=== PATIENT | female | born 1945 | race Caucasian/White ===

== ENCOUNTER 2022-10-24 08:22 | Outpatient (REF) | payer MEDICARE, MEDICAID, SELFPAY | END 2022-10-24 08:23 | disposition home or self-care (01) | LOC: HO.SH 08:22 | PROVIDERS: Visit Provider Family Medicine | DX: Z01.118 Encounter for examination of ears and hearing with other abnormal findings (principal); H90.3 Sensorineural hearing loss, bilateral | CPT/HCPCS: 92557; 92567 ==

== ENCOUNTER 2024-05-20 08:35 | Outpatient (REF) | payer OTHER, SELFPAY ==
[2024-05-20 14:37] LABS: MANUAL DIFF FLAG NO
[2024-05-20 14:44] LABS: Basophils Absolute Auto 0.1 X10*3/uL (0.0-0.2); Basophils Percent Auto 1.4 % (0-2); Eosinophils Absolute Auto 0.2 X10*3/uL (0.0-0.4); Hematocrit 42.8 % (37.0-47.0); Hemoglobin 13.9 g/dl (12.0-16.0); Imm Gran Abs Auto 0.01 X10*3/uL (0.00-0.03); Imm Gran Pct Auto 0.2 % (0.0-0.4); Lymphocytes Absolute Auto 2.7 X10*3/uL (1.2-4.9); Lymphocytes Percent Auto 45.4 % (20-40); Mean Corpuscular HGB Conc 32.5 g/dl (31.0-35.0); Mean Corpuscular Hemoglobin 32.1 pg (27.0-33.0); Mean Corpuscular Volume 98.8 fL (80.0-98.0); Mean Platelet Volume 10.1 fL (9.4-12.3); Monocytes Absolute Auto 0.7 X10*3/uL (0.1-1.2); Monocytes Percent Auto 11.3 % (2-11); Neutrophils Absolute Auto 2.3 x10*3/uL (2.0-8.3); Neutrophils Percent Auto 38.7 % (45-73); Platelet Count 271 X10*3/uL (160-400); Red Blood Count 4.33 X10*6/uL (4.20-5.50); Red Cell Distribution Width 13.1 % (11.0-16.0); White Blood Count 5.9 X10*3/uL (4.8-10.8)
[2024-05-20 15:04] LABS: Alanine Aminotransferase 17 U/L (0-31); Alkaline Phosphatase 57 U/L (39-117); Anion Gap 13 (12-20); Aspartate Amino Transferase 24 U/L (5-31); Bilirubin Total 1.6 mg/dL (0.0-1.0); Blood Urea Nitrogen 19 mg/dL (9-16); Carbon Dioxide 26 mmol/L (22-29); Chloride 105 mmol/L (96-108); Cholesterol 161 mg/dL (<200); Estimated Glomerular Filt Rate > 60; Glucose Random 87 mg/dL (60-115); HDL Cholesterol 53 mg/dL (>40); Iron 170 mcg/dL (30-160); LDL Cholesterol Calculated 83 mg/dL (<100); Percent Iron Saturation 55 % (15-50); Potassium 4.9 mmol/L (3.3-5.1); Sodium 139 mmol/L (135-145); Total Iron Binding Capacity 310 mcg/dL (228-428); Total Protein 7.5 g/dL (6.5-8.0); Triglycerides 125 mg/dL (<150); Unsaturated Iron Binding 140 ug/dL
[2024-05-20 15:27] LABS: Ferritin 240 ng/mL (10-250); TSH reflex Free T4 2.17 uIU/mL (0.32-4.0); Vitamin D 25-OH Total 47.4 ng/mL (>30)
[2024-05-20 15:37] LABS: Folate 13.9 ng/mL (> or = 4.0); Vitamin B12 596 pg/mL (200-900)
== END 2024-05-20 08:36 | disposition home or self-care (01) ==
LOC: HO.CHCLDS 08:35
PROVIDERS: Visit Provider Family Medicine
DX: I10 Essential (primary) hypertension (principal); H93.13 Tinnitus, bilateral; G58.8 Other specified mononeuropathies
CPT/HCPCS: 36415; 80053; 80061; 82306; 82607; 82728; 82746; 83540; 84443; 85025

== ENCOUNTER 2024-07-23 08:54 | Outpatient (REF) | payer MEDICARE, SELFPAY ==
--- NOTE | 2024-07-23 | EMG_ITS ---
Right median and ulnar motor and sensory studies were performed. Right radial and median and lateral antecubital brachial sensory studies were performed. Left tibial and peroneal motor studies were performed, and left tibial H-reflex was obtained and sural study was performed with superficial peroneal sensory study. Right cervical and left lumbar paraspinal muscles were tested with needle. IMPRESSION: Mild to moderate axonal sensory motor peripheral neuropathy. Otherwise, no significant abnormality noted. MD BOB Sandoval/ALINA / [id number]
== END 2024-07-23 08:55 | disposition home or self-care (01) ==
LOC: HO.NEURO 08:54
PROVIDERS: PCP Family Medicine; Visit Provider Family Medicine
DX: G58.8 Other specified mononeuropathies (principal)
CPT/HCPCS: 95886; 95912

== ENCOUNTER 2025-03-31 08:25 | Outpatient (REF) | payer MEDICARE, OTHER, SELFPAY ==
--- OUTSIDE RECORDS SUMMARY | 2025-03-31 08:34 | XMS_ITS | Data Portability ---
Author Organization [place] - [facility], Allergy Address [address] [address] Care Team Providers Care Stone And Concrete Washer Name Role Phone VIDHI GOMEZ Primary Care Provider [phone] Assessment No assessment recorded. Plan of Treatment Reminders Order Date Submit Date Provider Last Modified By Organization Details Last Modified Time Details Appointments None recorded. Lab None recorded. Referral None recorded. Procedures None recorded. Surgeries None recorded. Imaging None recorded. Medication Orders clotrimaz ole-betam ethasone 1 %-0.05 % topical cream 025 025 [facility], [address] , [place], [place], [id number], 11:42:22 Patient TargetsNo targets recorded. Patient InstructionsNo instructions recorded. Reason for Referral None Reported. Results Created Date Observation Date Name Description Value Unit Range Abnormal Flag Note LastModifiedBy Organization Detail LastModifiedTime 10/07/19 audio gram No observ ation record ed. BARCODE Not Available 2024 12:05:16 10/08/19 25 10/24/2022 audio gram No observ ation record ed. [email or web address] Not Available 09/25 09:13:39 Result Notes None recorded. Problems Name Problem SNOMED Code Status Onset Date Resolution Date Notes Provider Name and Address Organization Details Recorded Time Sensorineur al hearing loss of bilateral ears 979902788 Active 2024 PETERSON HUNTER 100 [facility] [address] [place] [address], [phone], [facility] - [facility] 5 10:39:25 Dermal mycosis 68490101 Active 2024 GEETHA JIMENEZ MD [address] [address], [place], [address], [facility] - [facility] 5 11:37:25 Bilateral tinnitus [id number] Active 2024 GEETHA JIMENEZ MD 100 [facility] 100, [place], [address], [facility] - [facility] 5 11:38:12 Problem Notes None recorded. Procedures Surgical History Date Name Laterality Status Provider Name and Address Organization Details Recorded Time 10/07/2024 Comp Audio with Tymps - 98483 & 09972 completed PETERSON HUNTER [address] [address], [place], [address], [facility] 10/07/2024 10:39:35 Imaging Results None recorded. Procedure Notes None recorded. Medical Equipment None Reported. Allergies No known drug allergies Medications Name Sig Start Date Stop Date Status Note LastModified by Organization Details LastModified Time losartan 50 mg tablet TAKE ONE TABLET EVERY MORNING active Not Available Not Available No t Available cetirizine 10 mg tablet TAKE ONE TABLET EVERY MORNING active Not Available Not Available No t Available polyvinyl alcohol 1.4 % eye drops PLACE ONE DROP IN THE AFFECTED EYE(S) NEEDED FOR DRY eyes active Not Available Not Available No t Available simvastatin 10 mg tablet TAKE ONE TABLET BY MOUTH EVERY EVENING 10/07 completed Not Available Not Available Not Available aspirin 81 mg tablet,marianna yed release TAKE ONE TABLET BY MOUTH DAILY 10/07 completed Not Available Not Available Not Available spironolact one 25 mg tablet TAKE ONE TABLET EVERY MORNING active Not Available Not Available No t Available clotrimazol e-betametha sone 1 %-0.05 % topical cream APPLY TO THE SKIN OF THE AFFECTED EXTERNAL EAR CANAL WITH FINGERTIP 3 TIMES PER DAY FOR 2 WEEKS 2024 active Not Available Not Available Not Avai lable sertraline 25 mg tablet TAKE ONE TABLET BY MOUTH EVERY MORNING active Not Available Not Available No t Available fluticasone propionate 50 mcg/actuati on nasal spray,suspe nsion [place] 1 spray every day by intranasa l route. active Not Available Not Available No t Available calcium 600 mg (as carbonate)- vitamin D3 10 mcg (400 unit) tablet TAKE ONE TABLET IN THE MORNING AND EVENING active Not Available Not Available No t Available cholecalcif jai (vitamin D3) 50 mcg (2,000 unit) tablet TAKE ONE TABLET EVERY MORNING 10/07 completed Not Available Not Available Not Available Myrbetriq 25 mg tablet,exte nded release TAKE ONE TABLET BY MOUTH EVERY MORNING DO NOT BREAK, CRUSH, DISSOLVE OR CHEW 10/07 completed Not Available Not Available Not Available Mag-Delay 64 mg tablet,marianna yed release TAKE ONE TABLET EVERY MORNING 10/07 completed Not Available Not Available Not Available Paxlovid 300 mg (150 mg x 2)-100 mg tablets in a dose pack TAKE 2 NIRMATREL VIR AND 1 RITONAVIR BY MOUTH TWICE DAILY DIRECTED 10/07 completed Not Available Not Available Not Available Vitals Date Recorded Body height Body weight Provider Name and Address Organization Details Last Updated DateTime 10/07/2024 142.24 cm 27031.93 g Yaneth Mcdonald [place] - [facility] 10/07/2024 10:33:43 Social History None recorded. Functional Status None recorded. Mental Status None recorded. Family History Nothing Reported. Medical History Condition Response Arthritis Y Hypertension Y Anxiety Y Depression Y Gynecological HistoryNo gynecological history recorded. Obstetrics History GPAL:G 0 P 0 0 0 0 Past Encounters Encounter ID Performer Location Encounter Start Date Encounter Closed Date Diagnosis/Indication Diagnosis SNOMED-CT Code Diagnosis ICD10 Code Diagnosis Note [id number] GEETHA JIMENEZ MD [facility] [address] [address] 10/07/2024 10:26:21 10/07/2024 11:46:45 Dermal mycosis 40294887 B36.9 The skin of the bilateral external auditory canal is showing signs of fungal dermatitis . Recommend applicatio n of clotrimazo le/betamet hasone cream to be applied by fingertip to the external auditory meatus three times a day for two weeks. Patient may repeat this as necessary for recurrence of symptoms. Prescripti on sent to patient's pharmacy. Avoidance of Q-tips recommende d to reduce the risk of recurrence . Physical examinatio n revealed signs of excessive Q-tip use today. Today we spent some time talking about the fact that cerumen is a natural antibiotic , antifungal , waterproof er, and moisturize r of the delicate external auditory canal skin. The use of Q-tips strips away this natural protection and makes the ear canal skin more likely to become itchy, irritated or become infected. There is also the risk of trauma to the tympanic membranes as well. We discussed proper aural hygiene techniques to maintain the health of the external ears. Today so so the cream never went to do that I sent that to the pharmacy but overall family where on her pinky her right pinky nail is short. Okay just left then where and then what you do is a portable film where there is rather than like this okay 3 times a day for 2 full weeks okay no nebulizer cream left over so that if it comes back you can just do a 2-week course and it will make it go away Sensorineu ral hearing loss of bilateral ears 908264227 H90.3 Right Ear:Mild to severe SNHL with good speech discrimina tion.Type A tympanogra m.Left Ear:Mild to severe SNHL with good speech discrimina tion.Type A tympanogra m.Patient' s audiogram shows bilateral moderate sensorineu ral hearing loss with well maintained speech discrimina tion. There is enough hearing loss to affect day-to-day hearing performanc e. We discussed in detail the pros and cons of amplificat ion (hearing aids). We discussed the connection between untreated hearing loss and increased risk of dementia, falling and accidents. After full discussion , the patient expressed interest in learning more about amplificat ion options. Accordingl y I have provided a copy of the audiogram, a list of [facility] hearing aid providers, and medical clearance for amplificat ion so the patient can pursue this at their convenienc e. Patient is medically cleared for amplificat ion bilaterall y. Bilateral tinnitus [id number] H93.13 Today we discussed the pathophysi ology of tinnitus and the absence of consistent ly successful pharmacolo gic treatments for tinnitus. We discussed masking strategies to decrease awareness of the tinnitus, including using a white noise machine, music, or television . We discussed how exposure to loud noise can worsen tinnitus so I recommende d hearing protection . We also discussed other ways to potentiall y help reduce awareness of tinnitus including avoidance of caffeine, salty meals and NSAIDs.In light of the underlying sensorineu ral hearing loss, the patient may want to further consider amplificat ion. This would not only help with hearing, but can also be instrument al in acting as a masking source to help reduce the awareness of tinnitus. [id number] PETERSON HUNTER [facility] [address] [place] [address] 10/07/2024 10:39:04 10/08/2024 08:37:13 Sensorineural hearing loss of bilateral ears 343687483 H90.3 Right Ear:Mild to severe SNHL with good speech discrimina tion.Type A tympanogra m.Left Ear:Mild to severe SNHL with good speech discrimina tion.Type A tympanogra m. Health Concerns Section Related Observation LastModified by Organization Detai ls LastModified Time None Recorded Concern Status LastModified by Organization Details LastModified Time None Recorded Advance Directives Directive None Recorded Payers Insurance Date Sequence Insurance Name Policy Number Policy [place] Covered Member ID [place] Member ID Guarantor Name 10/14/2024 1 [place]: [employer] Ivelisse Luz [id number] Ivelisse Luz 10/14/2024 1 [employer] (MEDICARE REPLACEMENT/ ADVANTAGE - [place]PO) [id number] Ivelisse Luz [id number] Ivelisse Luz Notes Date Note Type Note Provider Name and Address Organization Details Recorded Time 10/07/2024 text/html Patient comes in for evaluation of hearing loss. Patient has been noticing difficulty hearing in a variety of different listening environments, particularly exacerbated by background noise. Hearing loss has been gradual over a period of 20 years. Patient notes bilateral tinnitus, right greater than left. No history of excessive noise exposure. Patient comes in for audiometric testing and discussion of possible remedies for hearing loss. In addition patient noticing chronic itchiness of her external ears, right greater than left. Patient uses Q-tips on a regular basis. Patient is accompanied by her goddaughter who is helping with translation today. GEETHA JIMENEZ MD [address] [place] [address], [phone], [facility] - [facility] 10/07/2024 11:45:35 OBGyn Episode No OBEpisode recorded.
--- OUTSIDE RECORDS SUMMARY | 2025-03-31 08:34 | XMS_ITS | Encounter Summary ---
Author Organization [employer] Address [address] [place] [address] [address] [place] [address] Care Team Providers Care Stone Driller Helper Name Role Phone Tracy Fisher MD Primary Care Provider [phone] Encounter Details Date Type Department Care Team (Latest Contact Info) Description 12/31/2018 Abstract [facility], Provider, DDS Social History Tobacco Use Types Packs/Day Years Used Date Smoking Tobacco: Never Assessed Comments Unknown Sex and Gender Information Value Date Recorded Sex Assigned at Female 07/25/2022 10:23 AM EDT Legal Sex Female 10:23 AM EDT Gender Identity Female 07/25/2022 10:23 AM EDT Sexual Orientation Straight 07/25/2022 10 :23 AM EDT documented as of this encounter Plan of Treatment Not on file documented as of this encounter Visit Diagnoses Not on filedocumented in this encounter Care Teams Stone Driller Helper Relationship Specialty Start Date End Date Tracy Fisher MD [address] [place] [id number] PCP - General Family Medicine 06/14/21 documented as of this encounter
[2025-03-31 14:35] LABS: MANUAL DIFF FLAG NO
[2025-03-31 14:46] LABS: Hematocrit 41.7 % (37.0-47.0); Hemoglobin 13.4 g/dl (12.0-16.0); Imm Gran Abs Auto 0.01 X10*3/uL (0.00-0.03); Imm Gran Pct Auto 0.2 % (0.0-0.4); Lymphocytes Absolute Auto 2.6 X10*3/uL (1.2-4.9); Mean Corpuscular HGB Conc 32.1 g/dl (31.0-35.0); Mean Corpuscular Hemoglobin 31.2 pg (27.0-33.0); Mean Corpuscular Volume 97.0 fL (80.0-98.0); NRBC Abs Auto 0.000 X10*3/uL (0.0-0.012); NRBC Pct Auto 0.0 /100WBC (0.0-0.2); Platelet Count 250 X10*3/uL (160-400); Red Blood Count 4.30 X10*6/uL (4.20-5.50); White Blood Count 5.6 X10*3/uL (4.8-10.8)
[2025-03-31 15:19] LABS: Iron 120 mcg/dL (30-160); Percent Iron Saturation 43 % (15-50); Total Iron Binding Capacity 279 mcg/dL (228-428); Unsaturated Iron Binding 159 ug/dL
[2025-03-31 15:23] LABS: Ferritin 235 ng/mL (10-250)
[2025-04-01 08:03] LABS: HIV Num 1 0.05 S/CO (0.00-0.99)
[2025-04-01 15:09] LABS: Antibody to SS-A Antigen <1.0 NEG AI (<1.0 NEG); Antibody to SS-B Antigen <1.0 NEG AI (<1.0 NEG)
[2025-04-03 18:59] LABS: Prot Elec - Albumin 4.0 g/dL (3.8-4.8); Prot Elec - Alpha1 0.2 g/dL (0.2-0.3); Prot Elec - Alpha2 0.7 g/dL (0.5-0.9); Prot Elec - Beta 1 0.5 g/dL (0.4-0.6); Prot Elec - Beta 2 0.5 g/dL (0.2-0.5); Prot Elec - Gamma 1.3 g/dL (0.8-1.7); Prot Elec - Total Protein 7.1 g/dL (6.1-8.1)
== END 2025-03-31 08:26 | disposition home or self-care (01) ==
LOC: HO.CHCLDS 08:25
PROVIDERS: Visit Provider Family Medicine
DX: R55 Syncope and collapse (principal); Z11.4 Encounter for screening for human immunodeficiency virus [HIV]; Z01.84 Encounter for antibody response examination
CPT/HCPCS: 36415; 82728; 83516; 83540; 84165; 84443; 85025; 86235; 87389